=== PATIENT | male | born 1985 | race Caucasian/White ===

== ENCOUNTER 2020-04-19 11:11 | Emergency (ER) | payer SELFPAY ==
[2020-04-19] MEDS ORDERED: NORMAL SALINE 1000 ML 1,000 ML IV ONE ×2 (11:25→13:47)
[2020-04-19 11:35] LABS: ABSOLUTE EOSINOPHILS # (AUTO) 0.2 10^3/uL (0.0-0.6); ABSOLUTE LYMPHOCYTES (AUTO) 2.5 10^3/uL (0.5-4.7); ABSOLUTE MONOCYTES (AUTO) 0.4 10^3/uL (0.1-1.4); ABSOLUTE NEUT (AUTO) 4.9 10^3/uL (1.7-8.2); BASOPHILS % (AUTO) 0.3 % (0-2); HEMOGLOBIN 13.2 g/dL (13.5-17.0); LYMPHOCYTES % (AUTO) 31.5 % (13-45); MEAN CORPUSCULAR HEMOGLOBIN 31.4 pg (27.0-33.4); MEAN CORPUSCULAR HGB CONC 33.9 g/dL (32.0-36.0); MEAN CORPUSCULAR VOLUME 93 fl (80-97); MONOCYTES % (AUTO) 4.8 % (3-13); PLATELET COUNT 259 10^3/uL (150-450); RED BLOOD COUNT 4.21 10^6/uL (4.35-5.55); RED CELL DISTRIBUTION WIDTH 13.1 % (11.5-14.0); SEGMENTED NEUTROPHILS % (AUTO) 61.4 % (42-78); TOTAL CELLS COUNTED % (AUTO) 100 %
[2020-04-19 11:41] VITALS: BP 155/117
[2020-04-19 11:55] LABS: ALBUMIN 4.3 g/dL (3.5-5.0); ALKALINE PHOSPHATASE 44 U/L (38-126); ANION GAP 10 (5-19); ASPARTATE AMINO TRANSFERASE 24 U/L (17-59); BILIRUBIN,TOTAL 0.5 mg/dL (0.2-1.3); BLOOD UREA NITROGEN 13 mg/dL (7-20); CALCIUM 9.3 mg/dL (8.4-10.2); CARBON DIOXIDE 26 mmol/L (22-30); CHLORIDE 102 mmol/L (98-107); GLUCOSE 178 mg/dL (75-110); POTASSIUM 3.9 mmol/L (3.6-5.0); TOTAL PROTEIN 7.3 g/dL (6.3-8.2)
--- NOTE | 2020-04-19 12:50 | ER Document Report ---
ED General - General Chief Complaint: Altered Mental Status Stated Complaint: ALTERED MENTAL STATUS Time Seen by Provider: 04/19/20 11:22 Notes: HPI: 34-year-old male who presents with EMS secondary to some altered mental status noted by people at a convenience store. Patient states he took his Suboxone this morning without eating. Patient states he has been trying to get off of OxyContin and started Suboxone treatment 2 months ago. Patient states he believes he is slightly altered because he did not eat before taking the medication. Patient himself denies any and all symptoms such as headache, neck pain, chest pain, abdominal pain, vomiting, or diarrhea. Denies any weakness or numbness. Patient denies using any other illicit drugs last evening of this morning. ROS: See HPI All other review of systems reviewed and otherwise negative Reviewed vital signs and nursing note as charted by RN. PHYSICAL EXAM: CONSTITUTIONAL: Patient is alert but somnolent. He at times closes eyes and seems to fall asleep during the interview but is easily arousable. HEAD: Normocephalic; atraumatic EYES: PERRL; Conjunctivae clear, sclerae non-icteric ENT: Normal nose; no rhinorrhea; moist mucous membranes; pharynx without lesions noted NECK: Supple without meningismus; non-tender; no cervical lymphadenopathy, no masses CARD: Tachycardic but regular; no murmurs; symmetric distal pulses RESP: Normal chest excursion without splinting or tachypnea; breath sounds clear and equal bilaterally ABD/GI: Normal bowel sounds; non-distended; soft, non-tender to deep palpation of all 4 quadrants of the abdomen BACK: The back appears normal and is non-tender to palpation EXT: Normal ROM in all joints; non-tender to palpation; no edema SKIN: No acute lesions noted NEURO: CN 2-12 intact; no nystagmus noted; 5/5 bilateral upper and lower extremity strength with sensation intact to light touch PSYCH: The patient's mood and manner are appropriate. Grooming and personal hygiene are appropriate. - Related Data Allergies/Adverse Reactions: No Known Allergies Allergy (Unverified 04/19/20 11:28) Home Medications: Suboxone 2mg q6 hours Past Medical History - Social History Smoking Status: Current Some Day Smoker Chew tobacco use (# tins/day): No Frequency of alcohol use: None Drug Abuse: None Family History: Reviewed & Not Pertinent Past Surgical History: Reports: Hx Orthopedic Surgery Physical Exam - Vital signs Vitals: Resp Pulse Ox 15 98 04/19/20 11:14 04/19/20 11:14 Course - Re-evaluation Re-evalutation: Given the above history and physical examination, patient was placed on the monitor with an EKG and cardiac panel ordered. I have also ordered a urine drug test. Patient denies any and all pain but has a slightly increased blood pressure and heart rate. EKG is pending. Patient denies any chest pain and is not tachypneic or hypoxic. I do believe PE and dissection as well as pulmonary embolism to be unlikely. I do have some concern about the possibility of a drug ingestion. EKG shows a rate of 135, sinus tachycardia, right bundle branch block, no obvious ST elevation or depression. 04/19/20 13:47 Patient's heart rate is now 106. Second liter of fluid has been provided. Labs as recorded. 04/19/20 15:14 Labs as recorded. Patient is much more oriented. Heart rate 93. Blood pre ssure stable. 2 L of fluid have been provided. - Vital Signs Vital signs: Temp Pulse Resp BP Pulse Ox 99.1 F 150 H 11 L 155/117 H 97 04/19/20 11:26 04/19/20 11:26 04/19/20 11:26 04/19/20 11:26 04/19/20 11:26 - Laboratory Results Result Diagrams: 04/19/20 11:14 04/19/20 11:14 Laboratory Results Interpreted: 04/19/20 04/19/20 11:14 11:14 RBC 4.21 L Hgb 13.2 L Glucose 178 H Critical Laboratory Results Reviewed: No Critical Results - Radiology Results Critical Radiology Results Reviewed: No Critical Results Discharge - Discharge Clinical Impression: Tachycardia Altered mental status Qualifiers: Altered mental status type: unspecified Qualified Code(s): R41.82 - Altered mental status, unspecified Condition: Good Disposition: HOME, SELF-CARE Additional Instructions: Come back immediately for any altered mental status, weakness or numbness, fevers or vomiting, or any other acute problems. Please follow-up with your primary care physician. Please stay away from any illicit substances as discussed.
[2020-04-19 13:43] LABS: URINE AMPHETAMINES SCREEN NEGATIVE; URINE BARBITURATES SCREEN NEGATIVE; URINE BENZODIAZEPINES SCREEN NEGATIVE; URINE COCAINE SCREEN NEGATIVE; URINE MARIJUANA (THC) SCREEN NEGATIVE; URINE METHADONE SCREEN NEGATIVE; URINE PHENCYCLIDINE SCREEN NEGATIVE
--- NOTE | 2020-04-19 21:57 | EKG REPORT ---
SEVERITY:- ABNORMAL ECG - SINUS TACHYCARDIA RIGHT BUNDLE BRANCH BLOCK : Confirmed by: Jo Ann Deleon MD 19-Apr-2020 21:57:00
== END 2020-04-19 15:45 | disposition home or self-care (01) ==
LOC: ER 11:11
DX: R00.0 Tachycardia, unspecified (principal); R41.82 Altered mental status, unspecified; F17.200 Nicotine dependence, unspecified, uncomplicated
CPT/HCPCS: 93005; 99284; 96360; 96361; 36415; 85025; 80053; 80307; 93010; J7030